=== PATIENT | male | born 1990 | race Two or more races ===

== ENCOUNTER 2020-07-11 19:13 | Inpatient (IN) | payer MEDICAID ==
[~2020-07-11] VITALS: Ht 177.8 cm; Wt 59.7 kg
[2020-07-11 19:15] VITALS: BP 137/70
--- NOTE | 2020-07-11 19:21 | Emergency Room Report ---
History of Present Illness General Chief Complaint: Pain Source: Patient Present Illness HPI Disclaimer: Please note that this report is being documented using DRAGON technology. This can lead to erroneous entry secondary to incorrect interpretation by the dictating instrument. HPI: 29-year-old male presents for evaluation of left ankle pain. Patient reports pain over the lateral malleolus of the left ankle for the past day. Denies swelling, overlying erythema, injury, fall, trauma of any kind. No prior history of ankle pain or injury. He reports the pain is spreading up the leg. History of IV drug use. Last injection 2 weeks ago. History of HIV and has been without medication for 1 month. Denies fever, chills, nausea, vomiting , skin breakdown, rash. PMH: HIV, IV drug abuse PSH: Reviewed Allergies: None Social Hx: IV drug abuse Allergies: Coded Allergies: No Known Allergies (Unverified , 07/11/20) COVID-19 Screening Contact w/high risk pt: No Experienced COVID-19 symptoms?: No COVID-19 Testing performed SENIOR BACKUP ADMINISTRATOR: No Nursing Documentation-PMH Past Medical History: No History, Except For Review of Systems All Other Systems: negative except mentioned in HPI Physical Exam Vital Signs Date Time Temp Pulse Resp B/P (MAP) Pulse Ox O2 Delivery O2 Flow Rate FiO2 07/11/20 19:06 98.1 79 20 137/70 (92) 98 Room Air General: Awake and alert, no acute distress HEENT: NC/AT. EOMI. Resp: Normal work of breathing Skin: Intact. Multiple skin excoriations, picking behavior MSK: Normal tone and bulk. Moving all extremities. No obvious deformity. Tenderness to palpation over the anterior and posterior aspect of the lateral malleolus left ankle. No tenderness over the medial malleolus. Pain with flexion extension. No significant edema, no overlying skin changes, no midfoot tenderness. Neuro: Awake and alert. Mentating appropriately Procedures Additional Procedure Procedure Narrative Arthrocentesis left ankle: Foot was sterilized with Betadine prep and circumferential nerve block performed using approximately 20 cc 1% lidocaine without epi. Foot was scrubbed cleaned and again soaked in Betadine prep. Sterile dressing applied. Needle inserted between the extensor digitorum longus and lateral malleolus. Cloudy straw-colored material aspirated approximately 3 cc. No blood loss. No complications. Sterile dressing applied. Patient tolerated the procedure well. Performed by me, Dr. Harper Electronically signed by Dr. Geraldo Harper Medical Decision Making Diagnostic Impression: Primary Impression: Septic joint ER Course 29-year-old male history of HIV and IV drug abuse presents for evaluation atraumatic left ankle pain of 1 day duration. Concern for fracture, dislocation , inflammatory arthritis, septic arthritis, gouty arthritis. X-ray obtained did not show evidence of bony trauma but did show soft tissue swelling and effusion. Arthrocentesis was performed removing approximate 3 cc cloudy straw- colored material. Patient tolerated procedure well and there were no complications. See separate procedure section of this note for full details. Preliminary cell count shows elevated nucleated cells consistent with septic arthritis. Patient started on ceftriaxone and vancomycin. Culture sent. Will admit for further treatment to panel physician, Dr. Marquez Labs Test 07/11/20 20:49 07/11/20 22:20 07/13/20 05:10 07/13/20 11:20 Body Fluid Source Synovial Body Fluid Volume 1.0 mL Body Fluid Appearance Mucoid (Clear) Body Fluid RBC 2925 /CUMM Body Fluid Total Nucleated Cells 77414 /CUMM Body Fluid Polynuclear WBCs (%) 75 % Body Fluid Mononuclear WBCs (%) 25 % Body Fluid Mesothelial Cells (%) 0 % Body Fluid Comment Last Vital Signs Date Time Temp Pulse Resp B/P (MAP) Pulse Ox O2 Delivery O2 Flow Rate FiO2 07/11/20 19:06 98.1 79 20 137/70 (92) 98 Room Air Disposition: ADMITTED INPATIENT Condition: Serious Scripts Bictegrav/Emtricit/Tenofov Ala (Biktarvy 50-200-25 mg Tablet) 1 Each Tablet 1 EACH PO DAILY for 30 Days, #30 TAB Prov: Geraldo Harper MD 07/11/20 Geraldo Harper MD Jul 11, 2020 19:21
[2020-07-11] MEDS ORDERED: HYDROcodone/Acetamin 10/325 tab ORAL ONE (19:30)
[2020-07-11] MEDS ORDERED: Lidocaine 1% Plain 30 ml INJ ONE (20:15)
--- NOTE | 2020-07-11 20:18 | Diagnostic Imaging Report ---
EXAM: XR Left Ankle Complete, 3 or More Views CLINICAL HISTORY: PAIN TECHNIQUE: Frontal, lateral and oblique views of the left ankle. COMPARISON: None available FINDINGS: Bones/joints: There is a moderate ankle joint effusion. No acute fracture. No dislocation. Soft tissues: Prominent lateral ankle soft tissue swelling is noted. IMPRESSION: Lateral ankle soft tissue swelling and a moderate joint effusion without acute osseous abnormality.
[2020-07-11] MEDS ORDERED: BIKTARVY 50-201 EACH PO (21:48)
[2020-07-11] MEDS ORDERED: Vancomycin 1 GM in NS 275 ML IVPB ONE (22:15)
[2020-07-11] MEDS ORDERED: cefTRIAXone 2 GM in NS 55 ML IVPB ONE (22:15)
[2020-07-11 22:49] LABS: BASOPHILS % (AUTO) 1.5 % (0.0-2.0); EOSINOPHILS % (AUTO) 0.1 % (0.0-3.0); HEMATOCRIT 39.2 % (42.0-52.0); HEMOGLOBIN 13.2 G/DL (14.2-18.0); MEAN CORPUSCULAR VOLUME 82 FL (80-99); MONOCYTES % (AUTO) 6.4 % (1.0-10.0); PLATELET COUNT 296 K/UL (150-450)
[2020-07-11] MEDS ORDERED: Morphine Sulfate 4mg/ml Inj (IV USE ONLY) IVP PRN (23:00)
[2020-07-11 23:08] LABS: ANION GAP 9 mmol/L (5-15); BLOOD UREA NITROGEN 15 mg/dL (7-18); CALCIUM 8.5 MG/DL (8.5-10.1); CARBON DIOXIDE 28 MMOL/L (21-32); CHLORIDE 98 MMOL/L (98-107); CREATININE 0.7 MG/DL (0.55-1.30); POTASSIUM 3.5 MMOL/L (3.5-5.1); SODIUM 135 MMOL/L (136-145)
[2020-07-11 23:10] VITALS: BP 130/72
[2020-07-11 23:13] LABS: ALANINE AMINOTRANSFERASE 33 U/L (12-78); ALBUMIN/GLOBULIN RATIO 0.6 (1.0-2.7); ALKALINE PHOSPHATASE 111 U/L (46-116); ASPARTATE AMINO TRANSFERASE 26 U/L (15-37); BILIRUBIN,TOTAL 0.5 MG/DL (0.2-1.0)
[2020-07-11] MEDS ORDERED: Morphine Sulfate 4mg/ml Inj (IV USE ONLY) IVP ONE (23:15)
[2020-07-12] VITALS (7 sets, daily range): BP systolic 96–141; BP diastolic 53–76
[2020-07-12] MEDS: HYDROcodone/Acetamin 10/325 tab ORAL PRN ×5 (01:37→20:37)
[2020-07-12] MEDS: Morphine Sulfate 2mg/ml Inj(IV/IM USE ONLY) IVP PRN ×5 (04:35→23:29)
[2020-07-12] MEDS: Vancomycin 1gm in Dextrose 275ml IVPB SCH ×3 (05:41→21:05)
[2020-07-12] MEDS ORDERED: Gadavist 7.5mMol/7.5ml vial IV PRN (07:30)
[2020-07-12] MEDS: Heparin 5000 units/ml inj SUBQ SCH ×2 (08:44→20:40)
--- NOTE | 2020-07-12 09:29 | History and Physical Report ---
DATE OF ADMISSION: 07/11/2020 CHIEF COMPLAINT: Left ankle pain, rule out septic joint. HISTORY OF PRESENT ILLNESS: The patient is a 29-year-old male. He has a history of HIV, presented with complaints of two days of worsening severe pain in the left ankle. He denies any trauma. He has had some subjective fevers and chills. On evaluation in the emergency room, he had a white count of 14,000. A tap of the ankle showed 75 wbc's. Rest of the fluid is currently pending. There was concern about possible septic ankle. He is now admitted for further evaluation and care. PAST MEDICAL HISTORY: Significant for HIV. PAST SURGICAL HISTORY: None. CURRENT MEDICATIONS: Include Biktarvy. ALLERGIES: None. FAMILY HISTORY: None. SOCIAL HISTORY: The patient has a history of IV drug use, last used two to three weeks ago. The patient smokes and drinks. REVIEW OF SYSTEMS: Negative, except for ankle pain and subjective fevers and chills. PHYSICAL EXAMINATION: VITAL SIGNS: Temperature 98.1, pulse 79, respirations 18, and blood pressure 116/76. GENERAL: The patient is well developed, in no apparent distress. HEART: Regular. LUNGS: Clear. ABDOMEN: Soft. EXTREMITIES: No clubbing or cyanosis. Left ankle swollen, indurated. There are some excoriations around the ankle. The patient is unable to flex or extend the foot at the ankle due to pain. LABORATORY DATA: Labs were reviewed. ASSESSMENT: This is a 29-year-old male. He has a history of IV drug use, admitted with left ankle pain, possibly secondary to a septic ankle. PLAN: 1. MRI of the ankle with contrast. 2. Orthopedic consultation. 3. IV antibiotics. 4. ID consultation. Reggie Marquez M.D. DR: Jose Luis JOB#: [id number] CC:
[2020-07-12] MEDS ORDERED: Omnipaque-300 100ml vial INJ PRN (13:45)
--- NOTE | 2020-07-12 14:42 | Diagnostic Imaging Report ---
CT LEFT ANKLE W/WO Contrast HISTORY: Swelling TECHNIQUE: One or more of the following dose reduction techniques were used: automated exposure control, adjustment of the mA and/or kV according to patient size, use of iterative reconstruction technique. Axial CT images of the left ankle obtained without contrast with coronal and sagittal reconstructions One or more of the following dose reduction techniques were used: automated exposure control, adjustment of the mA and/or kV according to patient size, use of iterative reconstruction technique. Total Exam volume computed tomography dose index (CTDIvol) = 3.3 mGy and Dose Length Product (DLP) = 112.6 mGY-c COMPARISON: Plain films July 11, 2020 FINDINGS: Diffuse soft tissue swelling demonstrated. Normal alignment demonstrated. There is no acute fracture or dislocation. Talar dome appears intact. Joint effusion demonstrated at the tibiotalar joint. IMPRESSION: Soft tissue swelling demonstrated with joint effusion at the tibiotalar joint. There is no acute fracture or dislocation appreciated. Consider follow-up with MRI if concern for internal derangement.
[2020-07-13 04:00] VITALS: BP 115/82
[2020-07-13] MEDS: HYDROcodone/Acetamin 10/325 tab ORAL PRN ×3 (04:23→17:23)
--- NOTE | 2020-07-13 07:15 | General Progress Note ---
Assessment/Plan Problem List: (1) Septic joint ICD Codes: M00.9 - Pyogenic arthritis, unspecified SNOMED: 773208612 Status: stable Assessment/Plan: d/w - needs arthroscopy. He does not do arthroscopy. recommend transfer to facility that is able to perform procedure. will d/w case management cont iv abx ID eval Subjective ROS Limited/Unobtainable: No Constitutional: Reports: malaise, weakness HEENT: Reports: no symptoms Cardiovascular: Reports: no symptoms Respiratory: Reports: no symptoms Gastrointestinal/Abdominal: Reports: no symptoms Genitourinary: Reports: no symptoms Neurologic/Psychiatric: Reports: no symptoms Endocrine: Reports: no symptoms Hematologic/Lymphatic: Reports: no symptoms Allergies: Coded Allergies: No Known Allergies (Unverified , 07/11/20) All Systems: reviewed and negative except above Subjective decreased pain. remains on iv abx. cultures pending Objective Last 24 Hour Vital Signs Date Time Temp Pulse Resp B/P (MAP) Pulse Ox O2 Delivery O2 Flow Rate FiO2 07/13/20 04:00 97.5 80 20 115/82 (93) 99 07/12/20 23:44 98.7 78 20 111/75 (87) 100 07/12/20 21:00 Room Air 07/12/20 20:00 98.7 79 21 141/72 (95) 95 07/12/20 16:34 98.6 07/12/20 16:34 98.6 07/12/20 16:00 98.3 83 21 116/71 (86) 97 07/12/20 12:00 98.6 78 19 96/53 (67) 97 07/12/20 09:00 Room Air 07/12/20 08:00 98.2 82 20 114/69 (84) 98 Intake and Output 07/12/20 07/13/20 18:59 06:59 Intake Total 515 ml 675 ml Output Total 700 ml 800 ml Balance -185 ml -125 ml Intake Oral 240 ml 400 ml IV Total 275 ml 275 ml Output Urine Total 700 ml 800 ml # Bowel Movements 2 Laboratory Tests 07/13/20 05:10: Vancomycin Level Trough [Pending] Height (Feet): 5 Height (Inches): 10.00 Weight (Pounds): 140 Objective left ankle with decreased erythema and swelling Reggie Marquez MD Jul 13, 2020 07:15
[2020-07-13 07:40] LABS: BASOPHILS % (AUTO) 1.4 % (0.0-2.0); EOSINOPHILS % (AUTO) 0.3 % (0.0-3.0); HEMATOCRIT 39.4 % (42.0-52.0); HEMOGLOBIN 13.4 G/DL (14.2-18.0); LYMPHOCYTES % (AUTO) 12.7 % (20.0-45.0); MEAN CORPUSCULAR VOLUME 80 FL (80-99); MONOCYTES % (AUTO) 7.7 % (1.0-10.0); PLATELET COUNT 346 K/UL (150-450); RED BLOOD COUNT 4.95 M/UL (4.70-6.10); RED CELL DISTRIBUTION WIDTH 12.2 % (11.6-14.8); WHITE BLOOD COUNT 9.2 K/UL (4.8-10.8)
[2020-07-13 08:00] VITALS: BP 113/75
[2020-07-13 08:16] LABS: ALANINE AMINOTRANSFERASE 26 U/L (12-78); ALBUMIN 2.6 G/DL (3.4-5.0); ALBUMIN/GLOBULIN RATIO 0.5 (1.0-2.7); ALKALINE PHOSPHATASE 97 U/L (46-116); ANION GAP 12 mmol/L (5-15); ASPARTATE AMINO TRANSFERASE 25 U/L (15-37); BILIRUBIN,TOTAL 0.5 MG/DL (0.2-1.0); BLOOD UREA NITROGEN 8 mg/dL (7-18); CALCIUM 8.5 MG/DL (8.5-10.1); CARBON DIOXIDE 25 MMOL/L (21-32); CHLORIDE 100 MMOL/L (98-107); CREATININE 0.6 MG/DL (0.55-1.30); POTASSIUM 3.3 MMOL/L (3.5-5.1); SODIUM 137 MMOL/L (136-145)
[2020-07-13] MEDS: Vancomycin 1.5gm/NS Premix IVPB SCH ×2 (08:55→17:23)
[2020-07-13] MEDS: Heparin 5000 units/ml inj SUBQ SCH ×2 (08:56→21:00)
--- NOTE | 2020-07-13 11:44 | Consultation ---
DATE OF CONSULTATION: 07/13/2020 INFECTIOUS DISEASES CONSULTATION CONSULTING PHYSICIAN: Jose Garcia MD REFERRING PHYSICIAN: Reggie Marquez MD REASON FOR CONSULTATION: Left ankle septic joint. HISTORY OF PRESENTING ILLNESS: This is a 29-year-old gentleman with history of HIV with history of IV drug use with fentanyl, who comes in with left ankle pain. He underwent an arthrocentesis, which showed 78,000 white cells. There was a concern for septic arthritis and an Infectious Diseases consultation has been obtained for antibiotics. PAST MEDICAL HISTORY: History of HIV, unknown T-cell count and viral load. He states he is on Biktarvy. He denies any hepatitis A, B, or C and any other opportunistic infections or sexually transmitted diseases. SOCIAL HISTORY: He is a smoker. He does not drink alcohol. He has history of IV drug use with fentanyl. He denies shooting into his legs. FAMILY HISTORY: Positive for heart disease in his grandmother. REVIEW OF SYSTEMS: RESPIRATORY: No fever, chills, cough, shortness of breath, or chest pain. CARDIAC: No chest pain. No palpitation. No dizziness. No syncope. GASTROINTESTINAL: No nausea. No vomiting. No abdominal pain or diarrhea. MUSCULOSKELETAL: He complains of left ankle pain. MEDICATIONS: As an inpatient, he is on potassium, IV vancomycin, Tylenol, [place], and morphine. ALLERGIES: No known drug allergies. PHYSICAL EXAMINATION: VITAL SIGNS: Temperature of 98.2, T-max of 99.2, pulse of 76, respiratory rate 20, blood pressure 113/75, and O2 saturation of 97%. HEENT: Pupils equally reactive to light and accommodation. Mouth appears clean without thrush. NECK: Supple. No adenopathy. No JVD. CARDIOVASCULAR SYSTEM: Regular rate and rhythm. No murmurs. LUNGS: Clear to auscultation bilaterally. No crackles. No wheezes. ABDOMEN: Soft, nontender. No organomegaly. EXTREMITIES: No cyanosis. No clubbing. No edema. Left ankle swelling noted. There are needle track daley on his legs. LABORATORY AND DIAGNOSTIC DATA: Synovial fluid, white cells 78,462; neutrophils 75; no crystals noted. White count was 14 on 07/11/2020, white count of 9.2 today, hemoglobin 13.4, hematocrit 39.4, MCV 80, platelet count of 346,000 with neutrophils of 78%. Sodium 137, potassium 3.3, chloride 100, bicarb 25, BUN 8, creatinine 0.6, glucose 97, and calcium 8.5. Total bilirubin 0.5, AST 25, ALT 26, alkaline phosphatase 97. C-reactive protein 13.8. Total protein 7.7, albumin 2.6. Synovial fluid culture is growing Staph aureus. Blood cultures are negative. CT of the ankle is showing soft tissue swelling with joint effusion at the tibiotalar joint. No fracture or dislocation noted. Ankle x-ray is showing lateral ankle soft tissue swelling with a moderate joint effusion without acute osseous abnormality. ASSESSMENT: This is a 29-year-old gentleman with history of HIV, T-cell count unknown, viral load unknown, on Biktarvy, who comes in with left ankle pain with history of injection drug use and is found to have: 1. Left ankle septic arthritis with Staph aureus. 2. HIV. 3. We would like to rule out endocarditis as a possibility. PLAN: 1. Continue IV vancomycin for now. 2. We would suggest orthopedic evaluation. 3. We would order a 2D echocardiogram. 4. We will order CD4 count. 5. We will follow up the patient clinically. I would like to thank, Dr. Marquez, for this consultation. Jose Garcia M.D. DR: Hector JOB#: [id number] CC: Reggie Marquez M.D.
[2020-07-13 12:00] VITALS: BP 113/77
[2020-07-13] MEDS ORDERED: NS 500ML ONE (15:32)
[2020-07-13] MEDS ORDERED: Tubing IV Secondary IV ONE (15:32)
[2020-07-13 16:00] VITALS: BP 101/64
[2020-07-13 20:00] VITALS: BP 119/82
[2020-07-14] VITALS: BP 118/82
[2020-07-14] MEDS: Vancomycin 1.5gm/NS Premix IVPB SCH ×4 (01:34→23:21)
[2020-07-14 04:00] VITALS: BP 112/73
[2020-07-14] MEDS ORDERED: Gadavist 7.5mMol/7.5ml vial IV PRN (07:30)
[2020-07-14 08:00] VITALS: BP 120/76
--- NOTE | 2020-07-14 09:35 | General Progress Note ---
Assessment/Plan Problem List: (1) Septic joint ICD Codes: M00.9 - Pyogenic arthritis, unspecified SNOMED: [id number] Status: stable Assessment/Plan: iv abx mri ankle possible transfer to [facility] for arthroscopy Subjective ROS Limited/Unobtainable: No Constitutional: Reports: no symptoms HEENT: Reports: no symptoms Cardiovascular: Reports: no symptoms Respiratory: Reports: no symptoms Gastrointestinal/Abdominal: Reports: no symptoms Genitourinary: Reports: no symptoms Neurologic/Psychiatric: Reports: no symptoms Endocrine: Reports: no symptoms Hematologic/Lymphatic: Reports: no symptoms Allergies: Coded Allergies: No Known Allergies (Unverified , 07/11/20) All Systems: reviewed and negative except above Subjective decreased pain. remains on iv abx. cultures with mrsa. [facility] transfer center requesting imaging Objective Last 24 Hour Vital Signs Date Time Temp Pulse Resp B/P (MAP) Pulse Ox O2 Delivery O2 Flow Rate FiO2 07/14/20 08:00 98.0 73 20 120/76 (91) 100 07/14/20 04:00 97.8 69 16 112/73 (86) 100 07/14/20 00:00 98.1 68 16 118/82 (94) 100 07/13/20 21:00 Room Air 07/13/20 20:00 97.6 67 16 119/82 (94) 97 07/13/20 16:00 97.6 76 18 101/64 (76) 95 07/13/20 12:00 98.0 61 19 113/77 (89) 97 Intake and Output 07/13/20 07/14/20 19:00 07:00 Output Total 700 ml Balance -700 ml Output Urine Total 700 ml Laboratory Tests 07/13/20 11:20: White Blood Count 9.5, Lymphocytes 13, Nucleated Red Blood Cells , Absolute Lymphocytes (Cell Immunity 1.2, Percent CD3 Cells 68.2, Absolute CD3 Count 818, Percent CD4 Cells 20.1L, Absolute CD4 Count 241L, T-Lymphocyte CD4/CD8 Ratio 0.45L, Percent CD8 Cells 44.4H, Absolute CD8 Count 533 07/14/20 07:50: Vancomycin Level Trough 15.9H Height (Feet): 5 Height (Inches): 10.00 Weight (Pounds): 140 Objective left ankle with decreased erythema and swelling Reggie Marquez MD Jul 14, 2020 09:35
[2020-07-14] MEDS: HYDROcodone/Acetamin 10/325 tab ORAL PRN ×2 (09:48→16:32)
[2020-07-14] MEDS: Heparin 5000 units/ml inj SUBQ SCH ×2 (09:56→21:15)
--- NOTE | 2020-07-14 10:37 | Diagnostic Imaging Report ---
EXAM: MRI MRI Ankle w/wo Contrast LT HISTORY: 21-year-old male with history of HIV presenting with 2 days history of worsening ankle pain and no trauma. Fever and chills. Leukocytosis. WBCs noted in aspirated ankle fluid. Concern for septic ankle. COMPARISON: CT ankle on 07/12/2020 TECHNIQUE: MR scanning of the ankle including sagittal, coronal and axial T1, T2, proton density and STIR sequences. FINDINGS: There are multiple areas of patchy marrow signal alteration identified around the ankle. Increased signal is noted in the navicular. There is also some increased signal noted within the talus mainly along the subtalar joint. Mild patchy signal changes also identified in the tibial plafond near the medial malleolus. Of note, there is heterogeneous signal alteration with a slightly more nodular configuration noted in the lateral malleolar region almost resembling small areas of bony erosion on T1. However there is no distinct lytic or lucent lesion identified in this area on prior CT. Ankle mortise and subtalar joints appear anatomic. There is a moderate joint effusion which was aspirated previously. Mild superficial soft tissue edema noted around the ankle both medial and lateral aspect and also along the plantar aspect of the hindfoot. No discrete organized fluid collection or abscess identified. Anterior extensor tendons appear unremarkable. The posterior flexor tendon groups are also unremarkable. Achilles and peroneal tendons shows normal course and signal as well. Ligamentous structures are grossly unremarkable to the extent visualized. IMPRESSION: ANKLE JOINT EFFUSION WITH ADJACENT PATCHY MARROW BRIGHTENING IDENTIFIED IN MULTIPLE OSSEOUS STRUCTURES INCLUDING THE MEDIAL MALLEOLUS/TIBIAL PLAFOND AND LATERAL MALLEOLUS, TALUS AND THE NAVICULAR. WITH THE PATIENT'S HISTORY AND APPARENT WBC'S WITHIN THE ASPIRATED JOINT EFFUSION, FINDINGS ARE WORRISOME FOR SEPTIC ARTHRITIS AND EARLY ADJACENT OSTEOMYELITIS. THE SOMEWHAT NODULAR APPEARANCE OF THE SIGNAL CHANGES WITHIN THE LATERAL MALLEOLUS ALMOST RESEMBLING AREAS OF LYTIC CHANGES RAISE THE POSSIBILITY OF BACILLARY ANGIOMATOSIS ALTHOUGH NO DISTINCT LYTIC LESION IDENTIFIED ON PRIOR CT. PLEASE CORRELATE WITH CULTURE OF THE JOINT FLUID.
--- NOTE | 2020-07-14 10:49 | Infectious Diseases Prog Note ---
"Assessment/Plan Assessment/Plan antibiotics : vancomycin iv A 1. left ankle septic arthritis | osteomyelitis with MRSA 2. HIV, cd4 241 3. IVDU 4. + blood culture with coag neg staph likely contaminated P 1. continue iv vancomycin 2. will follow up cultures Subjective Constitutional: Denies: fever, chills Respiratory: Denies: shortness of breath, dry cough Gastrointestinal/Abdominal: Denies: nausea, vomiting, diarrhea Musculoskeletal: Reports: pain - decreased in left ankle Allergies: Coded Allergies: No Known Allergies (Unverified , 07/11/20) Objective Last 24 Hour Vital Signs Date Time Temp Pulse Resp B/P (MAP) Pulse Ox O2 Delivery O2 Flow Rate FiO2 07/14/20 08:00 98.0 73 20 120/76 (91) 100 07/14/20 04:00 97.8 69 16 112/73 (86) 100 07/14/20 00:00 98.1 68 16 118/82 (94) 100 07/13/20 21:00 Room Air 07/13/20 20:00 97.6 67 16 119/82 (94) 97 07/13/20 16:00 97.6 76 18 101/64 (76) 95 07/13/20 12:00 98.0 61 19 113/77 (89) 97 Height (Feet): 5 Height (Inches): 10.00 Weight (Pounds): 140 Respiratory/Chest: lungs clear Cardiovascular: normal rate, regular rhythm, no gallop/murmur Abdomen: soft, non tender Extremities: no edema Microbiology Date/Time Source Procedure Growth Status 07/11/20 22:35 Blood Blood Culture - Preliminary Staphylococcus Sp Coag Neg Resulted 07/11/20 22:20 Blood Blood Culture - Preliminary NO GROWTH AFTER 48 HOURS Resulted 07/11/20 20:49 Synovial Fluid Gram Stain - Final Complete 07/11/20 20:49 Body Fluid Culture - Final Staphylococcus Aureus - Mrsa Complete Laboratory Tests Test 07/13/20 11:20 07/14/20 07:50 White Blood Count 9.5 x10E3/uL (3.4-10.8) Lymphocytes 13 % (Not Estab.) Nucleated Red Blood Cells (.) Absolute Lymphocytes (Cell Immunity 1.2 x10E3/uL (0.7-3.1) Percent CD3 Cells 68.2 % (57.5-86.2) Absolute CD3 Count 818 /uL (622-2402) Percent CD4 Cells 20.1 % (30.8-58.5) L Absolute CD4 Count 241 /uL (359-1519) L T-Lymphocyte CD4/CD8 Ratio 0.45 (0.92-3.72) L Percent CD8 Cells 44.4 % (12.0-35.5) H Absolute CD8 Count 533 /uL (109-897) Vancomycin Level Trough 15.9 ug/mL (5.0-12.0) H Current Medications Medications (Trade) Dose Ordered Sig/Shannen Route PRN Reason Start Time Stop Time Status Last Admin Dose Admin Acetaminophen (Tylenol) 650 mg Q4H PRN ORAL Mild Pain (Pain Scale 1-3) 07/11/20 23:45 08/10/20 23:44 Acetaminophen/ Hydrocodone Bitart ([place] 10/325) 1 tab Q4H PRN ORAL For Pain 07/11/20 23:45 07/18/20 23:44 07/14/20 09:48 Gadobutrol (Gadavist) 7.5 mmol NOW PRN IV Radiology Procedure 07/12/20 07:30 07/16/20 07:16 Gadobutrol (Gadavist) 7.5 mmol NOW PRN IV Radiology Procedure 07/14/20 07:30 07/18/20 07:20 Heparin Sodium (Porcine) (Heparin 5000 units/ml) 5,000 units EVERY 12 HOURS SUBQ 07/12/20 09:00 08/26/20 08:59 07/14/20 09:56 Iohexol (OMNIPAQUE-300 100ml) 100 ml NOW PRN INJ Radiology Procedure 07/12/20 13:45 07/14/20 13:40 Morphine Sulfate (Morphine Sulfate) 1 mg Q4H PRN IVP For Pain 07/11/20 23:45 07/18/20 23:44 07/12/20 23:29 Vancomycin HCl (Vanco pharmacy to dose) 1 ea DAILY PRN MISC Per rx protocol 07/11/20 23:45 08/10/20 23:44 Vancomycin/Sodium Chloride 275 ml @ 137.5 mls/ hr Q8HR@0100,0900,1700 IVPB 07/13/20 09:00 07/18/20 08:59 07/14/20 09:49 Jose Garcia MD Jul 14, 2020 10:49"
[2020-07-14 12:00] VITALS: BP 137/78
[2020-07-14 16:00] VITALS: BP 124/78
[2020-07-14 20:00] VITALS: BP 112/64
[2020-07-15] VITALS: BP 121/74
[2020-07-15 04:00] VITALS: BP 98/54
[2020-07-15 08:00] VITALS: BP 119/74
[2020-07-15] MEDS ORDERED: Vancomycin 1.5gm/NS Premix IVPB SCH (08:00)
[2020-07-15] MEDS: HYDROcodone/Acetamin 10/325 tab ORAL PRN (08:14)
[2020-07-15] MEDS: Heparin 5000 units/ml inj SUBQ SCH (08:17)
[2020-07-15] MEDS ORDERED: NS 275ml ONE (09:20)
--- NOTE | 2020-07-16 10:30 | Discharge Summary ---
Discharge Summary Discharge Summary _ DATE OF ADMISSION: 07/11/2020 DATE OF DISCHARGE: 07/15/2020 Patient left AGAINST MEDICAL ADVICE REASON FOR ADMISSION: 29 years old male with past medical history of HIV, IV drug abuse, presented for evaluation of atraumatic left ankle pain for 1 day duration. Upon evaluation vital signs were stable. Laboratory work-up revealed leukocytosis with WBC 14, hemoglobin 13.2, hematocrit 39.2. ESR 85. CRP 13.8. Stable electrolytes and renal parameters. Upon physical examination noted tenderness to palpation over the anterior and posterior aspect of the lateral malleolus left ankle. X-ray of the left ankle revealed soft tissue swelling and a moderate joint effusion without acute osseous abnormality. Patient undergone arthrocentesis yielding 3 cc of cloudy straw-colored fluid. Patient tolerated procedure well . Preliminary cell count showed elevated nucleated cells, consistent with septic arthritis. Patient started on empiric antibiotic and subsequently admitted for further management Patient made to medical surgical floor. Patient continue on IV antibiotics CONSULTANTS: ID specialist Dr. Garcia HOSPITAL COURSE: Patient admitted to medical surgical floor. Patient continued on IV antibiotic as per ID specialist recommendation. Patient subsequently undergone CT scan of the left ankle, which revealed diffuse soft tissue swelling. Normal alignment. No acute fracture or dislocation. Joint effusion demonstrated at tibiotalar joint. Subsequently MRI of the left ankle was done which revealed ankle joint effusion with adjacent patchy marrow brightening, identified And multiply osseous structures, including the medial malleolus/tibial plafond and lateral malleolus, talus and navicular. With the patient history and apparent WBC within the aspirated joint effusion findings were worrisome for septic arthritis and early adjacent osteomyelitis. Aspirated fluid culture revealed MRSA. Blood culture revealed Staph coagulase negative. likely contaminant as per ID specialist. Leukocytosis resolved. No fevers. Pain management was addressed as needed. Supportive care provided. DVT prophylaxis provided. T-cell subsets count revealed CD4 of 241. Patient was recommended to follow-up with outpatient HIV provider to resume ART therapy. Patient case was discussed with orthopedic surgeon Dr. Dahl . Per orthopedic surgeon, patient need arthroscopy Orthopedic surgeon recommended transfer to a higher level of care. Patient was not accepted to [facility]. While case management was working on the transfer , patient decided to leave AGAINST MEDICAL ADVICE. The risks and consequences of signing AGAINST MEDICAL ADVICE were discussed with patient in detail. Patient verbalized understanding, nevertheless signed AMA form and left. FINAL DIAGNOSES: Left ankle septic arthritis /Osteomyelitis with MRSA HIV /CD4 241 IVDU HIV I have been assigned to dictate discharge summary for this account. I was not involved in the patient's management. Kyleigh Funes NP Jul 16, 2020 10:30
--- NOTE | 2020-07-16 10:33 | Cardiology Report ---
APPROVED REPORT EXAM: Two-dimensional and M-mode echocardiogram with Doppler and color Doppler. INDICATION Endocarditis M-Mode DIMENSIONS IVSd0.9 (0.7-1.1cm)Left Atrium (MM)3.1 (1.6-4.0cm) LVDd4.1 (3.5-5.6cm)Aortic Root3.1 (2.0-3.7cm) PWd0.9 (0.7-1.1cm)Aortic Cusp Exc.2.1 (1.5-2.0cm) IVSs1.5 cm LVDs2.6 (2.5-4.0cm) PWs1.3 cm Other Information Quality : Limited <Conclusion> Patient requested to terminatie the exam. Normal left ventricular chamber size, systolic function and wall motion. Left ventricular ejection fraction estimated to be 60%. All other cardiac chamber sizes are within normal limits to extent visualized. Mild focal aortic valve sclerosis with adequate cusp excursion. Mildly thickened mitral valve leaflets with normal excursion. Mild mitral annulus and aortic root calcification. Normal pulmonic valve structure. Normal tricuspid valve structure. A color flow and spectral Doppler study was performed and revealed: Trace mitral regurgitation. Trace tricuspid regurgitation. Tricuspid systolic velocities suggests peak right ventricular systolic pressure of 9 mmHg.
== END 2020-07-15 09:21 | disposition left against medical advice (07) | DRG 344 ==
LOC: EDBD 19:13 → EMR 19:57 → 3E 22:23 → EDBEDREQ 23:09
PROC: 0S9G3ZZ Drainage of Left Ankle Joint, Percutaneous Approach (ICD-10-PCS; principal; 2020-07-11)
DX: M00.9 Pyogenic arthritis, unspecified (principal); M00.072 Staphylococcal arthritis, left ankle and foot; B95.62 Methicillin resistant Staphylococcus aureus infection as the cause of diseases classified elsewhere; M86.8X7 Other osteomyelitis, ankle and foot; F19.10 Other psychoactive substance abuse, uncomplicated
CPT/HCPCS: 36415; 80053; 80202; 85025; 85651; 86140; 86360; 87040; 87070; 87081; 87181; 87205; 89051; 89060; 93306; 96361; 96365; 96367; 99285; A9585; J8499